=== PATIENT | male | born 1990 | race Caucasian/White ===

== ENCOUNTER 2017-02-05 02:13 | Inpatient (IN) | payer OTHER ==
[~2017-02-05] VITALS: Ht 177.8 cm; Wt 68.5 kg
[2017-02-05 02:16] VITALS: BP 110/75
[2017-02-05] MEDS ORDERED: NOHOMEMEDICATIONS (02:22)
[2017-02-05 03:52] LABS: ABSOLUTE NEUTROPHILS 9.4 thou/uL (1.4-8.2); BASOPHILS 0.8 % (0.0-2.0); EOSINOPHILS 1.8 % (0.0-3.0); HEMATOCRIT 44.3 % (42.0-52.0); MCH 28.9 pg (26.0-34.0); MCHC 33.8 g/dL (28.0-37.0); MCV 85.7 fL (80.0-100.0); PLATELET COUNT 318 thou/uL (150-400); POLYS 67.4 % (36.0-66.0); RBC 5.17 mil/uL (4.50-6.00); RDW 13.2 % (10.5-14.5); WBC 13.9 thou/uL (4.0-11.0)
[2017-02-05 03:53] LABS: MANUAL DIFF NO
[2017-02-05 03:57] LABS: CALCIUM 9.4 mg/dL (8.5-10.1); CREATININE 0.9 mg/dL (0.7-1.3)
[2017-02-05 05:11] VITALS: BP 111/63
[2017-02-05 05:27] VITALS: BP 106/64
[2017-02-05 07:33] VITALS: BP 100/61
[2017-02-05 15:11] VITALS: BP 100/64
[2017-02-05 19:45] VITALS: BP 114/64
[2017-02-06 04:15] LABS: ABSOLUTE NEUTROPHILS 4.8 thou/uL (1.4-8.2); BASOPHILS 0.6 % (0.0-2.0); EOSINOPHILS 5.7 % (0.0-3.0); HEMATOCRIT 42.5 % (42.0-52.0); HEMOGLOBIN 14.5 gm/dL (14.0-18.0); LYMPHOCYTES 29.4 % (24.0-44.0); MCH 29.1 pg (26.0-34.0); MCHC 34.2 g/dL (28.0-37.0); MCV 85.2 fL (80.0-100.0); MONOCYTES 9.6 % (1.0-8.0); PLATELET COUNT 293 thou/uL (150-400); POLYS 54.7 % (36.0-66.0); RBC 4.98 mil/uL (4.50-6.00); RDW 13.2 % (10.5-14.5); WBC 8.7 thou/uL (4.0-11.0)
[2017-02-06 04:17] LABS: MANUAL DIFF NO
[2017-02-06 04:30] LABS: CALCIUM 8.6 mg/dL (8.5-10.1); CREATININE 0.9 mg/dL (0.7-1.3); POTASSIUM 3.3 mmol/L (3.5-5.1)
[2017-02-06 07:49] VITALS: BP 103/57
[2017-02-06 11:46] VITALS: BP 113/57
[2017-02-06 15:48] VITALS: BP 113/57
[2017-02-06 16:02] VITALS: BP 111/66
[2017-02-06] MEDS ORDERED: AUGMENTIN 875875 MG PO (16:14)
== END 2017-02-06 16:40 | disposition home or self-care (01) | DRG 603 ==
LOC: ER 02:13 → EROBS 04:36 → 4W 05:12
PROVIDERS: Emergency Medicine; Internal Medicine Endocrinology, Diabetes & Metabolism
DX: L03.114 Cellulitis of left upper limb (principal); S61.452A Open bite of left hand, initial encounter; F19.10 Other psychoactive substance abuse, uncomplicated; E87.6 Hypokalemia; I10 Essential (primary) hypertension; F17.210 Nicotine dependence, cigarettes, uncomplicated; F15.10 Other stimulant abuse, uncomplicated; W54.0XXA Bitten by dog, initial encounter; Y93.89 Activity, other specified; Y92.89 Other specified places as the place of occurrence of the external cause; Y99.8 Other external cause status; Z91.19 Patient's noncompliance with other medical treatment and regimen
CPT/HCPCS: 10040

== ENCOUNTER 2017-02-06 19:43 | Emergency (ER) | payer OTHER ==
[~2017-02-06] VITALS: Ht 177.8 cm; Wt 70.3 kg
--- NOTE | ~2017-02-06 | EKG ---
[address] [place] [address] ELECTROCARDIOGRAM REPORT Name: SAURABH CUEVA Room #: REG SAM Quintero#: [id number] Admission: 02/06/17 Attend Phys: Discharge: Date of : 86 Report #: [id number] THIS REPORT FOR: //name// [facility] ED Test Date: 2017-02-06 Test Time: 20:24:59 Pat Name: SAURABH CUEVA Department: Room: Gender: Cabinet Worker: BETHEL : 1990 Requested By: Bruce Fung Order Number: [id number] MD: Malachi Maurer Measurements Intervals [place] Rate: 79 P: 44 WV: 131 QRS: 63 QRSD: 90 T: 51 QT: 369 QTc: 424 Interpretive Statements Sinus rhythm ST elevation suggests acute pericarditis vs early repolarization No previous ECG available for comparison Electronically Signed On 02-06-2017 22:09:45 CDT by Malachi Maurer [email or web address] <ELECTRONICALLY SIGNED> By: Maalchi Maurer MD 02/06/17 2209 23 23 Malachi Maurer MD /NORA
[~2017-02-06 19:43] MED LIST: AUGMENTIN 875875 MG PO; NOHOMEMEDICATIONS
[2017-02-06 20:15] LABS: URINE BILIRUBIN NEGATIVE (Negative); URINE BLOOD NEGATIVE (Negative); URINE COLOR YELLOW; URINE GLUCOSE-RANDOM* NEGATIVE (Negative); URINE KETONES NEGATIVE (Negative); URINE NITRITE NEGATIVE (Negative); URINE PROTEIN (DIPSTICK) NEGATIVE (Negative); URINE UROBILINOGEN 0.2 E.U./dl (0.2-1.0)
[2017-02-06 20:28] LABS: AMP/METHAMP POSITIVE (Negative); BARBITURATES Negative (Negative); BENZODIAZEPINES Negative (Negative); COCAINE Negative (Negative); METHADONE Negative (Negative); OPIATES Negative (Negative); PCP Negative (Negative); THC Negative (Negative)
[2017-02-06 20:49] LABS: ABSOLUTE NEUTROPHILS 5.6 thou/uL (1.4-8.2); BASOPHILS 0.7 % (0.0-2.0); EOSINOPHILS 5.2 % (0.0-3.0); HEMATOCRIT 43.8 % (42.0-52.0); HEMOGLOBIN 15.2 gm/dL (14.0-18.0); LYMPHOCYTES 24.3 % (24.0-44.0); MCH 29.5 pg (26.0-34.0); MCHC 34.6 g/dL (28.0-37.0); MCV 85.2 fL (80.0-100.0); MONOCYTES 9.5 % (1.0-8.0); PLATELET COUNT 309 thou/uL (150-400); POLYS 60.3 % (36.0-66.0); RBC 5.14 mil/uL (4.50-6.00); RDW 13.2 % (10.5-14.5); WBC 9.4 thou/uL (4.0-11.0)
[2017-02-06 20:54] LABS: MANUAL DIFF NO
[2017-02-06 21:00] LABS: ANION GAP 9 mmol/L (7-16); BUN 14 mg/dL (7-18); CALCIUM 9.2 mg/dL (8.5-10.1); CHLORIDE 101 mmol/L (98-107); CO2 28 mmol/L (21-32); CREATININE 0.9 mg/dL (0.7-1.3); GLUCOSE 91 mg/dL (74-106); SODIUM 138 mmol/L (136-145)
[2017-02-06 21:01] LABS: POTASSIUM 4.7 mmol/L (3.5-5.1)
[2017-02-06 21:07] LABS: ACETAMINOPHEN < 2 ug/mL (10-30); ALBUMIN 3.9 g/dL (3.4-5.0); ALKALINE PHOSPHATASE 103 U/L (46-116); SALICYLATE < 2.8 mg/dL (2.8-20.0); SGOT 26 U/L (15-37); SGPT 32 U/L (30-65); TOTAL BILIRUBIN 0.5 mg/dL (<0.1-1.0)
== END 2017-02-06 23:29 | disposition home or self-care (01) ==
LOC: ER 19:43
PROVIDERS: Physician Assistant
DX: R45.851 Suicidal ideations (principal); F32.9 Major depressive disorder, single episode, unspecified; I10 Essential (primary) hypertension; F17.210 Nicotine dependence, cigarettes, uncomplicated; F10.99 Alcohol use, unspecified with unspecified alcohol-induced disorder; F15.90 Other stimulant use, unspecified, uncomplicated